=== PATIENT | male | born 1945 | race Caucasian/White ===

== ENCOUNTER 2016-04-25 11:54 | Outpatient (RCR) | payer MEDICARE ==
[2015-01-05 15:04] VITALS: BP 118/83
[~2016-04-25 11:54] MED LIST: ALPRAZOLAM0.5 M2 PO; AMBIEN10 MG PO; IBU800 M1 PO; NEURONTIN800 M1 PO; ULTRAM50 M1 PO
== END 2016-05-15 11:37 | disposition home or self-care (01) ==
LOC: OT 11:54
DX: M62.81 Muscle weakness (generalized) (principal)

== ENCOUNTER 2016-05-06 09:24 | Outpatient (RCR) | payer MEDICARE ==
[2015-01-05 15:04] VITALS: BP 118/83
== END 2016-06-03 13:21 ==
LOC: OPPGERO 09:24
DX: F32.2 Major depressive disorder, single episode, severe without psychotic features (principal); F41.1 Generalized anxiety disorder

== ENCOUNTER 2016-06-04 09:00 | Outpatient (RCR) | payer MEDICARE ==
[2015-01-05 15:04] VITALS: BP 118/83
== END 2016-07-01 10:26 ==
LOC: OPPGERO 09:00
DX: F32.2 Major depressive disorder, single episode, severe without psychotic features (principal); F41.1 Generalized anxiety disorder

== ENCOUNTER 2016-06-18 13:10 | Outpatient (RCR) | payer MEDICARE ==
[2015-01-05 15:04] VITALS: BP 118/83
== END 2016-07-30 10:28 | disposition home or self-care (01) ==
LOC: PT 13:10
DX: M62.81 Muscle weakness (generalized) (principal); S14.106S Unspecified injury at C6 level of cervical spinal cord, sequela; S14.107S Unspecified injury at C7 level of cervical spinal cord, sequela

== ENCOUNTER 2016-07-02 07:44 | Outpatient (RCR) | payer MEDICARE ==
[2015-01-05 15:04] VITALS: BP 118/83
== END 2016-08-01 15:05 ==
LOC: OPPGERO 07:44
DX: F32.2 Major depressive disorder, single episode, severe without psychotic features (principal); F41.1 Generalized anxiety disorder

== ENCOUNTER 2016-08-02 09:00 | Outpatient (RCR) | payer MEDICARE ==
[2015-01-05 15:04] VITALS: BP 118/83
== END 2016-08-29 15:38 ==
LOC: OPPGERO 09:00
DX: F32.2 Major depressive disorder, single episode, severe without psychotic features (principal); F41.1 Generalized anxiety disorder

== ENCOUNTER → 2017-02-13 | Outpatient (CLI) | payer MEDICARE ==
[~2017-02-13] VITALS: Ht 180.3 cm; Wt 96.4 kg
[~2017-02-13] MED LIST changes: +BACLOFEN10 M1 PO; +CYMBALTA20 MG PO; +DITROPAN XL10 M1 PO; +NEURONTIN600 M1 PO; -NEURONTIN800 M1 PO
[2017-02-13 10:02] LABS: BUN/CREATININE RATIO 23.2 (6.0-26.0); CALCIUM 9.7 mg/dL (8.4-10.2); POTASSIUM 4.5 mmol/L (3.6-5.0); TOTAL BILIRUBIN 0.5 mg/dL (0.2-1.3); TOTAL PROTEIN 7.8 g/dL (6.3-8.2)
[2017-02-13 10:06] LABS: EOS # 0.2 (0.04-0.40); EOS % 1.6 % (0.0-4.0); HEMATOCRIT 39.4 % (42.0-52.0); HEMOGLOBIN 12.3 g/dL (13.5-18.0); LYMPH# 1.7 (1.50-4.00); MEAN CELL VOLUME 97 fl (78-100); MEAN CORPUSCULAR HEMOGLOBIN 30 pg (27-31); MEAN CORPUSCULAR HGB CONC 31 g/dL (33-37); MEAN PLATELET VOLUME 9.5 fl (7.4-10.4); MONO # 0.9 (0.20-0.80); NEU # 8.4 (1.40-6.50); PLATELET COUNT 265 K/mm3 (130-400); RED BLOOD COUNT 4.05 M/mm3 (4.20-5.60); RED CELL DISTRIBUTION WIDTH 13.3 % (11.5-14.5); WHITE BLOOD COUNT 11.2 K/mm3 (4.8-10.8)
[2017-02-13 10:23] VITALS: BP 125/86
[2017-02-13 11:31] LABS: ERYTHROCYTE SEDIMENTATION RATE 62 mm/hr (0-20)
[2017-02-13 11:32] LABS: URINE APPEARANCE CLOUDY; URINE BILIRUBIN NEGATIVE (NEGATIVE); URINE BLOOD 50 ery/uL (NEGATIVE); URINE COLOR YELLOW; URINE GLUCOSE NEGATIVE (NEGATIVE); URINE KETONE NEGATIVE (NEGATIVE); URINE LEUKOCYTE ESTERASE 2+ (NEGATIVE); URINE NITRATE POSITIVE (NEGATIVE); URINE PROTEIN(semi-quant) 1+ mg/dL (NEGATIVE); URINE UROBILINOGEN NORMAL (NORMAL); URINE WBC >50 /hpf (0-3)
--- NOTE | 2017-02-15 11:19 | NUR ---
Pt in due to fox catheter bags kept coming undone fron inserted catheter. States happened 2-4 times and it did come undone whie he was standing at nurses desk. Assesed the catheter and observed after reinsterting the bag to indwelling catheter the it gradulay slid off its self while he was laying in the bed. Removed indwelling catheter and reinserted a different typ if indwelling cathere in hopes of fixing the problem pt was having at home. Had pt walk in hallways to insure the catheter would stay conected to the leg bag. After walking in the hallways bag stayed conected to leg bag.
--- NOTE | 2017-02-15 11:31 | NUR ---
While inserting the fox noted and area at the meatus that is yellowish in color. Questioned pt about pain or any drainge he might have noted, he denies any pain or drainge. Explained to pt about the area, he states that he has a doctor appointment on with the urologist and that he would point out the area at that time.
== END ==
LOC: AMSURD 09:21
PROVIDERS: Internal Medicine
DX: N30.00 Acute cystitis without hematuria (principal); E78.2 Mixed hyperlipidemia; Z12.5 Encounter for screening for malignant neoplasm of prostate; F33.1 Major depressive disorder, recurrent, moderate; Z12.11 Encounter for screening for malignant neoplasm of colon; R20.2 Paresthesia of skin
CPT/HCPCS: A4338; A4354; A4358

== ENCOUNTER 2017-06-05 13:30 | Outpatient (RCR) | payer MEDICARE ==
[2017-02-13 10:23] VITALS: BP 125/86
== END 2017-06-05 14:00 | disposition home or self-care (01) ==
LOC: PT 13:30
DX: S14.109D Unspecified injury at unspecified level of cervical spinal cord, subsequent encounter (principal); R29.898 Other symptoms and signs involving the musculoskeletal system; G82.54 Quadriplegia, C5-C7 incomplete; N39.41 Urge incontinence; M79.2 Neuralgia and neuritis, unspecified
CPT/HCPCS: G8978-GP; G8979-GP

== ENCOUNTER 2017-06-09 14:00 | Outpatient (RCR) | payer MEDICARE ==
[2017-02-13 10:23] VITALS: BP 125/86
== END 2017-06-09 14:30 | disposition home or self-care (01) ==
LOC: OT 14:00
DX: S14.101D Unspecified injury at C1 level of cervical spinal cord, subsequent encounter (principal); G82.50 Quadriplegia, unspecified; M48.00 Spinal stenosis, site unspecified

== ENCOUNTER 2018-02-11 13:00 | Outpatient (RCR) | payer MEDICARE ==
[2017-02-13 10:23] VITALS: BP 125/86
== END 2018-02-11 13:30 | disposition home or self-care (01) ==
LOC: OT 13:00
DX: G82.50 Quadriplegia, unspecified (principal)
CPT/HCPCS: G8978-GP; G8979-GP

== ENCOUNTER → 2018-04-05 | Outpatient (CLI) | payer MEDICARE ==
[2017-02-13 10:23] VITALS: BP 125/86
[2018-04-05 17:19] LABS: EOS # 0.3 (0.04-0.40); EOS % 4.4 % (0.0-4.0); HEMATOCRIT 41.4 % (42.0-52.0); LYMPH# 1.6 (1.50-4.00); MEAN CELL VOLUME 97 fl (78-100); MEAN CORPUSCULAR HEMOGLOBIN 30 pg (27-31); MEAN CORPUSCULAR HGB CONC 31 g/dL (33-37); MONO # 0.7 (0.20-0.80); NEU # 3.1 (1.40-6.50); PLATELET COUNT 216 K/mm3 (130-400); RED BLOOD COUNT 4.29 M/mm3 (4.20-5.60); RED CELL DISTRIBUTION WIDTH 13.4 % (11.5-14.5); WHITE BLOOD COUNT 5.6 K/mm3 (4.8-10.8)
[2018-04-05 18:53] LABS: ALBUMIN 4.5 g/dL (3.5-5.0); CALCIUM 9.5 mg/dL (8.4-10.2); POTASSIUM 4.6 mmol/L (3.6-5.0); TOTAL BILIRUBIN 0.4 mg/dL (0.2-1.3); TOTAL PROTEIN 7.6 g/dL (6.3-8.2)
[2018-04-05 19:12] LABS: ERYTHROCYTE SEDIMENTATION RATE 7 mm/hr (0-20)
== END ==
LOC: LAB 16:32
PROVIDERS: Internal Medicine
DX: Z12.5 Encounter for screening for malignant neoplasm of prostate (principal); F33.1 Major depressive disorder, recurrent, moderate; E78.5 Hyperlipidemia, unspecified; M48.00 Spinal stenosis, site unspecified; R20.2 Paresthesia of skin

== ENCOUNTER → 2018-05-03 | Outpatient (CLI) | payer MEDICARE ==
[2017-02-13 10:23] VITALS: BP 125/86
== END ==
LOC: RAD 13:37
DX: M47.814 Spondylosis without myelopathy or radiculopathy, thoracic region (principal); M47.817 Spondylosis without myelopathy or radiculopathy, lumbosacral region; M43.16 Spondylolisthesis, lumbar region; M48.061 Spinal stenosis, lumbar region without neurogenic claudication; M51.26 Other intervertebral disc displacement, lumbar region

== ENCOUNTER → 2018-07-16 | Outpatient (CLI) | payer MEDICARE ==
[2017-02-13 10:23] VITALS: BP 125/86
[~2018-07-16] MED LIST changes: +BACLOFEN5 MG PO; +DULOXETINE30 MG PO; +GABAPENTIN800 MG PO; +KLONOPIN 0.5MG0.5 MG PO; +MOBIC15 M1 PO; +MYRBETRIQ50 MG PO; +VESICARE10 MG PO
== END ==
LOC: CARDLAB 09:21 → CARDREHAB 10:37 → CARDLAB 15:39
DX: R06.02 Shortness of breath (principal); R06.00 Dyspnea, unspecified; Z82.49 Family history of ischemic heart disease and other diseases of the circulatory system
CPT/HCPCS: A9500

== ENCOUNTER → 2018-07-19 | Outpatient (CLI) | payer MEDICARE ==
[~2018-07-19] VITALS: Ht 180.3 cm; Wt 104.1 kg
[2018-07-19 14:15] VITALS: BP 115/67
[2018-07-19 15:09] LABS: ALBUMIN 4.2 g/dL (3.5-5.0); AST-SGOT 30 U/L (17-59); CALCIUM 9.2 mg/dL (8.4-10.2); CARBON DIOXIDE 28 mmol/L (22-30); EOS # 0.3 (0.04-0.40); EOS % 4.4 % (0.0-4.0); GLUCOSE 103 mg/dL (75-110); HEMATOCRIT 42.2 % (42.0-52.0); HEMOGLOBIN 13.3 g/dL (13.5-18.0); LYMPH# 1.3 (1.50-4.00); MEAN CELL VOLUME 96 fl (78-100); MEAN CORPUSCULAR HEMOGLOBIN 30 pg (27-31); MEAN CORPUSCULAR HGB CONC 32 g/dL (33-37); MEAN PLATELET VOLUME 10.3 fl (7.4-10.4); MONO # 0.5 (0.20-0.80); PLATELET COUNT 193 K/mm3 (130-400); POTASSIUM 4.4 mmol/L (3.6-5.0); RED BLOOD COUNT 4.41 M/mm3 (4.20-5.60); RED CELL DISTRIBUTION WIDTH 13.4 % (11.5-14.5); SODIUM 140 mmol/L (137-145); TOTAL BILIRUBIN 0.4 mg/dL (0.2-1.3); TOTAL PROTEIN 7.4 g/dL (6.3-8.2); WHITE BLOOD COUNT 6.1 K/mm3 (4.8-10.8)
[2018-07-19 15:20] LABS: PARTIAL THROMBOPLASTIN TIME 24.5 SECONDS (21.0-32.0); PROTHROMBIN TIME 9.9 SECONDS (9.0-12.0)
[2018-07-19 15:32] LABS: ALT/SGPT < 3 U/L (21-72)
== END ==
LOC: AMSURD 13:07
PROVIDERS: Internal Medicine
DX: Z01.812 Encounter for preprocedural laboratory examination (principal); M48.062 Spinal stenosis, lumbar region with neurogenic claudication; M48.02 Spinal stenosis, cervical region; Z79.01 Long term (current) use of anticoagulants

== ENCOUNTER 2018-09-17 13:00 | Outpatient (RCR) | payer MEDICARE ==
[2018-07-19 14:15] VITALS: BP 115/67
== END 2018-09-17 13:30 ==
LOC: PT 13:00
DX: M48.02 Spinal stenosis, cervical region (principal); G99.2 Myelopathy in diseases classified elsewhere

== ENCOUNTER 2019-02-05 18:14 | Emergency (ER) | payer MEDICARE ==
[~2019-02-05] VITALS: Ht 177.8 cm; Wt 103.2 kg
[2019-02-05] MEDS ORDERED: POTASSIUM CITR10 MEQ PO (18:23)
[2019-02-05 19:20] VITALS: BP 138/89
== END 2019-02-05 19:35 | disposition home or self-care (01) ==
LOC: ED 18:14
DX: N31.9 Neuromuscular dysfunction of bladder, unspecified (principal); R33.8 Other retention of urine; N52.9 Male erectile dysfunction, unspecified; Z98.890 Other specified postprocedural states
CPT/HCPCS: A4340

== ENCOUNTER 2019-02-17 17:18 | Emergency (ER) | payer MEDICARE ==
[~2019-02-17] VITALS: Wt 103.6 kg
[~2019-02-17 17:18] MED LIST changes: +POTASSIUM CITR10 MEQ PO
[2019-02-17 18:00] LABS: EOS # 0.3 (0.04-0.40); EOS % 4.5 % (0.0-4.0); HEMATOCRIT 37.7 % (42.0-52.0); LYMPH# 1.9 (1.50-4.00); MEAN CELL VOLUME 94 fl (78-100); MEAN CORPUSCULAR HEMOGLOBIN 30 pg (27-31); MEAN CORPUSCULAR HGB CONC 32 g/dL (33-37); MEAN PLATELET VOLUME 9.5 fl (7.4-10.4); MONO # 0.6 (0.20-0.80); NEU # 4.4 (1.40-6.50); PLATELET COUNT 200 K/mm3 (130-400); RED BLOOD COUNT 4.01 M/mm3 (4.20-5.60); RED CELL DISTRIBUTION WIDTH 14.1 % (11.5-14.5); WHITE BLOOD COUNT 7.2 K/mm3 (4.8-10.8)
[2019-02-17 18:06] LABS: ALBUMIN 3.9 g/dL (3.4-4.8)
[2019-02-17 18:07] LABS: POTASSIUM 4.4 mmol/L (3.5-5.1); PROTHROMBIN TIME 10.3 SECONDS (9.0-12.0); SODIUM 138 mmol/L (136-145)
[2019-02-17 18:08] LABS: CALCIUM 9.2 mg/dL (8.3-10.5)
[2019-02-17 18:09] LABS: GLUCOSE 106 mg/dL (75-110); TOTAL PROTEIN 7.1 g/dL (6.2-8.1)
[2019-02-17 18:10] LABS: CARBON DIOXIDE 24 mmol/L (23-31)
[2019-02-17 18:11] LABS: TOTAL BILIRUBIN 0.3 mg/dL (0.2-1.2)
[2019-02-17 18:12] LABS: ALCOHOL IN-HOUSE < 10 mg/dL (<10)
[2019-02-17 18:14] LABS: AST-SGOT 22 U/L (5-34)
[2019-02-17 18:16] LABS: ALT/SGPT 13 U/L (0-55)
[2019-02-17 18:22] LABS: TROPONIN-I < 0.03 ng/mL (<0.030)
[2019-02-17 19:55] VITALS: BP 168/92
== END 2019-02-17 19:57 | disposition home or self-care (01) ==
LOC: ED 17:18
PROVIDERS: Physician Assistant
DX: S06.0X9A Concussion with loss of consciousness of unspecified duration, initial encounter (principal); S00.83XA Contusion of other part of head, initial encounter; Z98.890 Other specified postprocedural states
CPT/HCPCS: 15973; L0172

== ENCOUNTER 2019-03-01 12:14 | Emergency (ER) | payer MEDICARE ==
[2019-03-01 13:40] VITALS: BP 94/57
== END 2019-03-01 13:30 | disposition home or self-care (01) ==
LOC: ED 12:14
DX: T83.198A Other mechanical complication of other urinary devices and implants, initial encounter (principal); R33.9 Retention of urine, unspecified; G62.9 Polyneuropathy, unspecified; F32.9 Major depressive disorder, single episode, unspecified; F41.9 Anxiety disorder, unspecified; Z87.442 Personal history of urinary calculi; Z98.890 Other specified postprocedural states
CPT/HCPCS: A4340

== ENCOUNTER 2019-03-22 10:03 | Outpatient (RCR) | payer MEDICARE ==
[2019-03-11 17:40] VITALS: BP 108/68
--- NOTE | 2019-03-11 17:41 | NUR ---
PT'S SUPRPUBIC CATHETER CHANGED OUT PER STANDING ORDER, USED ALL OF PT'S HOME SUPPLIES, TOLERATED PROCEDURE WELL, OBTAINED YELLOW CLOUDY URINE RETURN INTO LEG BAG
[~2019-03-22] VITALS: Ht 172.7 cm; Wt 103.6 kg
[2019-03-22 10:47] VITALS: BP 178/69
[2019-05-02] MEDS ORDERED: BACTRIM DS TAB1 EACH PO (23:58)
== END 2019-06-09 | disposition still patient (30) ==
LOC: AMSURD
DX: N31.2 Flaccid neuropathic bladder, not elsewhere classified (principal)
CPT/HCPCS: A4340

== ENCOUNTER 2019-05-02 20:52 | Emergency (ER) | payer MEDICARE ==
[~2019-05-02] VITALS: Ht 180.3 cm; Wt 100.0 kg
[2019-05-02 21:39] LABS: EOS # 0.2 (0.04-0.40); HEMOGLOBIN 12.6 g/dL (13.5-18.0); LYMPH# 1.9 (1.50-4.00); MEAN CELL VOLUME 97 fl (78-100); MEAN CORPUSCULAR HEMOGLOBIN 30 pg (27-31); MEAN CORPUSCULAR HGB CONC 31 g/dL (33-37); MEAN PLATELET VOLUME 9.7 fl (7.4-10.4); MONO # 0.8 (0.20-0.80); PLATELET COUNT 216 K/mm3 (130-400); RED BLOOD COUNT 4.22 M/mm3 (4.20-5.60); RED CELL DISTRIBUTION WIDTH 13.9 % (11.5-14.5); WHITE BLOOD COUNT 7.9 K/mm3 (4.8-10.8)
[2019-05-02 21:47] LABS: ALBUMIN 4.1 g/dL (3.4-4.8); POTASSIUM 4.5 mmol/L (3.5-5.1)
[2019-05-02 21:48] LABS: CALCIUM 9.1 mg/dL (8.3-10.5)
[2019-05-02 21:49] LABS: TOTAL PROTEIN 7.2 g/dL (6.2-8.1)
[2019-05-02 21:51] LABS: TOTAL BILIRUBIN 0.3 mg/dL (0.2-1.2)
[2019-05-02 23:29] LABS: URINE APPEARANCE CLOUDY; URINE COLOR YELLOW
[2019-05-02 23:30] LABS: URINE BILIRUBIN NEGATIVE (NEGATIVE); URINE BLOOD 250 ery/uL (NEGATIVE); URINE GLUCOSE NEGATIVE (NEGATIVE); URINE KETONE NEGATIVE (NEGATIVE); URINE LEUKOCYTE ESTERASE 2+ (NEGATIVE); URINE NITRATE POSITIVE (NEGATIVE); URINE PROTEIN(semi-quant) 2+ mg/dL (NEGATIVE); URINE UROBILINOGEN NORMAL (NORMAL); URINE WBC >50 /hpf (0-3)
[2019-05-02] MEDS ORDERED: BACTRIM DS TAB1 EACH PO (23:58)
[2019-05-03 00:05] VITALS: BP 135/67
== END 2019-05-03 00:05 | disposition home or self-care (01) ==
LOC: ED 20:52
PROVIDERS: Nurse Practitioner Primary Care
DX: R41.0 Disorientation, unspecified (principal); N30.01 Acute cystitis with hematuria; I10 Essential (primary) hypertension; F17.210 Nicotine dependence, cigarettes, uncomplicated

== ENCOUNTER → 2019-05-09 | Outpatient (CLI) | payer MEDICARE ==
[2019-05-03 00:05] VITALS: BP 135/67
[~2019-05-09] MED LIST changes: +BACTRIM DS TAB1 EACH PO
== END ==
LOC: LAB 14:30
DX: Z12.5 Encounter for screening for malignant neoplasm of prostate (principal); E78.5 Hyperlipidemia, unspecified; R20.2 Paresthesia of skin

== ENCOUNTER → 2019-11-11 | Outpatient (CLI) | payer MEDICARE | LOC: LAB 15:37 | DX: R20.2 Paresthesia of skin (principal) ==

== ENCOUNTER → 2019-12-09 | Outpatient (CLI) | payer MEDICARE | LOC: LAB 12:16 | DX: R20.2 Paresthesia of skin (principal) ==

== ENCOUNTER 2019-12-22 12:52 | Outpatient (RCR) | payer MEDICARE | END 2020-01-02 16:17 | disposition still patient (30) | LOC: OPPGERO 12:52 | DX: F33.1 Major depressive disorder, recurrent, moderate (principal); M48.02 Spinal stenosis, cervical region; F41.1 Generalized anxiety disorder; Z99.3 Dependence on wheelchair; G56.00 Carpal tunnel syndrome, unspecified upper limb; E78.5 Hyperlipidemia, unspecified; N40.0 Benign prostatic hyperplasia without lower urinary tract symptoms; E66.9 Obesity, unspecified; Z98.1 Arthrodesis status; Z87.891 Personal history of nicotine dependence; Z79.899 Other long term (current) drug therapy; Z96.0 Presence of urogenital implants; Z98.890 Other specified postprocedural states ==

== ENCOUNTER → 2020-10-05 | Outpatient (CLI) | payer MEDICARE ==
[2020-03-23 14:08] VITALS: BP 124/83
[~2020-10-05] MED LIST changes: +CEFDINIR300 MG PO; +HCTZ 25MG25 MG PO; +LEVOFLOXACIN750 MG PO; +TRAMADOL HCL E100 MG PO
[2020-10-05 16:08] LABS: BASO # 0.01 (0.02-0.10); EOS % 4.7 % (0.0-4.0); HEMATOCRIT 41.3 % (42.0-52.0); HEMOGLOBIN 13.3 g/dL (13.5-18.0); MEAN CELL VOLUME 94 fl (78-100); MEAN CORPUSCULAR HEMOGLOBIN 30 pg (27-31); MEAN CORPUSCULAR HGB CONC 32 g/dL (33-37); MEAN PLATELET VOLUME 9.2 fl (7.4-10.4); MONO # 0.68 (0.20-0.80); NEU # 3.37 (1.40-6.50); PLATELET COUNT 202 K/mm3 (130-400); RED BLOOD COUNT 4.41 M/mm3 (4.20-5.60); WHITE BLOOD COUNT 6.4 K/mm3 (4.8-10.8)
[2020-10-05 16:15] LABS: POTASSIUM 4.3 mmol/L (3.5-5.1)
[2020-10-05 16:16] LABS: ALBUMIN 4.1 g/dL (3.4-4.8)
[2020-10-05 16:17] LABS: CALCIUM 9.1 mg/dL (8.3-10.5)
[2020-10-05 16:18] LABS: TOTAL PROTEIN 7.4 g/dL (6.2-8.1)
[2020-10-05 16:20] LABS: TOTAL BILIRUBIN 0.3 mg/dL (0.2-1.2)
[2020-10-05 17:08] LABS: ERYTHROCYTE SEDIMENTATION RATE 13 mm/hr (0-20)
== END ==
LOC: LAB 15:53
PROVIDERS: Internal Medicine
DX: Z12.5 Encounter for screening for malignant neoplasm of prostate (principal); E78.2 Mixed hyperlipidemia; K90.9 Intestinal malabsorption, unspecified; M79.2 Neuralgia and neuritis, unspecified

== ENCOUNTER → 2020-10-29 | Day surgery (SDC) | payer MEDICARE | END | disposition home or self-care (01) | LOC: MSO 08:14 | DX: Z12.11 Encounter for screening for malignant neoplasm of colon (principal); K57.30 Diverticulosis of large intestine without perforation or abscess without bleeding; R13.10 Dysphagia, unspecified; F32.9 Major depressive disorder, single episode, unspecified; F41.9 Anxiety disorder, unspecified; G82.50 Quadriplegia, unspecified; Z79.899 Other long term (current) drug therapy; N31.9 Neuromuscular dysfunction of bladder, unspecified | CPT/HCPCS: 00813; J2704; J7120 ==

== ENCOUNTER → 2021-04-23 | Outpatient (CLI) | payer MEDICARE ==
[2021-04-23 13:49] LABS: URINE APPEARANCE HAZY; URINE BILIRUBIN NEGATIVE (NEGATIVE); URINE COLOR YELLOW; URINE GLUCOSE NEGATIVE (NEGATIVE); URINE KETONE NEGATIVE (NEGATIVE); URINE NITRATE NEGATIVE (NEGATIVE); URINE PROTEIN(semi-quant) 2+ (NEGATIVE); URINE UROBILINOGEN NORMAL (NORMAL)
[2021-04-23 13:50] LABS: URINE BLOOD 50 ery/uL (NEGATIVE); URINE LEUKOCYTE ESTERASE 2+ (NEGATIVE); URINE MUCUS PRESENT (NOT PRESENT)
== END ==
LOC: LAB 13:15
PROVIDERS: Urology
DX: N39.0 Urinary tract infection, site not specified (principal); N31.2 Flaccid neuropathic bladder, not elsewhere classified

== ENCOUNTER → 2021-07-10 | Outpatient (CLI) | payer MEDICARE ==
[2021-07-10 14:08] LABS: BASO # 0.01 K/mm3 (0.02-0.10); EOS # 0.27 K/mm3 (0.04-0.40); EOS % 3.2 % (0.0-4.0); HEMATOCRIT 42.3 % (42.0-52.0); HEMOGLOBIN 13.4 g/dL (13.5-18.0); LYMPH# 1.67 K/mm3 (1.50-4.00); MEAN CELL VOLUME 95 fl (78-100); MEAN CORPUSCULAR HEMOGLOBIN 30 pg (27-31); MEAN CORPUSCULAR HGB CONC 32 g/dL (33-37); MEAN PLATELET VOLUME 9.1 fl (7.4-10.4); MONO # 0.62 K/mm3 (0.20-0.80); PLATELET COUNT 204 K/mm3 (130-400); RED BLOOD COUNT 4.44 M/mm3 (4.20-5.60); RED CELL DISTRIBUTION WIDTH 13.2 % (11.5-14.5); WHITE BLOOD COUNT 8.5 K/mm3 (4.8-10.8)
[2021-07-10 14:21] LABS: POTASSIUM 4.3 mmol/L (3.5-5.1)
[2021-07-10 14:22] LABS: ALBUMIN 4.1 g/dL (3.4-4.8)
[2021-07-10 14:23] LABS: CALCIUM 9.4 mg/dL (8.3-10.5)
[2021-07-10 14:24] LABS: TOTAL PROTEIN 7.5 g/dL (6.2-8.1)
[2021-07-10 14:26] LABS: TOTAL BILIRUBIN 0.3 mg/dL (0.2-1.2)
== END ==
LOC: LAB 13:47
PROVIDERS: Internal Medicine
DX: E78.2 Mixed hyperlipidemia (principal)

== ENCOUNTER → 2021-10-25 | Outpatient (CLI) | payer MEDICARE ==
[2021-10-25 17:21] LABS: URINE APPEARANCE CLOUDY; URINE BILIRUBIN NEGATIVE (NEGATIVE); URINE BLOOD 250 ery/uL (NEGATIVE); URINE COLOR ORANGE; URINE GLUCOSE NEGATIVE (NEGATIVE); URINE KETONE NEGATIVE (NEGATIVE); URINE LEUKOCYTE ESTERASE 2+ (NEGATIVE); URINE NITRATE POSITIVE (NEGATIVE); URINE PROTEIN(semi-quant) 3+ (NEGATIVE); URINE UROBILINOGEN NORMAL (NORMAL)
[2021-10-25 17:22] LABS: URINE MUCUS PRESENT (NOT PRESENT); URINE WBC >50 /hpf (0-3)
== END ==
LOC: LAB 15:20
PROVIDERS: Internal Medicine
DX: N39.0 Urinary tract infection, site not specified (principal)

== ENCOUNTER → 2021-11-05 | Outpatient (CLI) | payer MEDICARE ==
[2021-11-05 12:18] LABS: BASO # 0.04 K/mm3 (0.02-0.10); EOS # 0.38 K/mm3 (0.04-0.40); EOS % 3.7 % (0.0-4.0); HEMATOCRIT 35.3 % (42.0-52.0); HEMOGLOBIN 10.9 g/dL (13.5-18.0); LYMPH# 1.47 K/mm3 (1.50-4.00); MEAN CELL VOLUME 97 fl (78-100); MEAN CORPUSCULAR HEMOGLOBIN 30 pg (27-31); MEAN CORPUSCULAR HGB CONC 31 g/dL (33-37); MEAN PLATELET VOLUME 9.3 fl (7.4-10.4); MONO # 0.66 K/mm3 (0.20-0.80); NEU # 7.63 K/mm3 (1.40-6.50); PLATELET COUNT 322 K/mm3 (130-400); RED BLOOD COUNT 3.63 M/mm3 (4.20-5.60); RED CELL DISTRIBUTION WIDTH 14.3 % (11.5-14.5); WHITE BLOOD COUNT 10.3 K/mm3 (4.8-10.8)
[2021-11-05 12:40] LABS: ALBUMIN 3.6 g/dL (3.4-4.8); POTASSIUM 4.7 mmol/L (3.5-5.1)
[2021-11-05 12:41] LABS: CALCIUM 8.8 mg/dL (8.3-10.5)
[2021-11-05 12:42] LABS: TOTAL PROTEIN 6.3 g/dL (6.2-8.1)
[2021-11-05 12:44] LABS: TOTAL BILIRUBIN 0.3 mg/dL (0.2-1.2)
== END ==
LOC: LAB 11:44
PROVIDERS: Internal Medicine
DX: Z12.5 Encounter for screening for malignant neoplasm of prostate (principal); Z12.11 Encounter for screening for malignant neoplasm of colon; E78.2 Mixed hyperlipidemia; N39.0 Urinary tract infection, site not specified; K90.9 Intestinal malabsorption, unspecified

== ENCOUNTER → 2021-11-08 | Outpatient (CLI) | payer MEDICARE ==
[~2021-11-08] VITALS: Ht 177.8 cm; Wt 101.4 kg
[2021-11-08 18:21] VITALS: BP 135/80
== END ==
LOC: AMSURD 16:39
DX: N39.0 Urinary tract infection, site not specified (principal)

== ENCOUNTER → 2022-03-10 | Outpatient (CLI) | payer MEDICARE ==
[2022-03-10 15:16] LABS: BASO # 0.01 K/mm3 (0.02-0.10); EOS # 0.26 K/mm3 (0.04-0.40); EOS % 4.4 % (0.0-4.0); HEMATOCRIT 40.1 % (42.0-52.0); HEMOGLOBIN 12.7 g/dL (13.5-18.0); LYMPH# 1.93 K/mm3 (1.50-4.00); MEAN CELL VOLUME 96 fl (78-100); MEAN CORPUSCULAR HEMOGLOBIN 30 pg (27-31); MEAN CORPUSCULAR HGB CONC 32 g/dL (33-37); MEAN PLATELET VOLUME 9.3 fl (7.4-10.4); MONO # 0.54 K/mm3 (0.20-0.80); NEU # 3.18 K/mm3 (1.40-6.50); PLATELET COUNT 210 K/mm3 (130-400); WHITE BLOOD COUNT 5.9 K/mm3 (4.8-10.8)
[2022-03-10 15:19] LABS: POTASSIUM 5.2 mmol/L (3.5-5.1)
[2022-03-10 15:20] LABS: CALCIUM 9.5 mg/dL (8.3-10.5)
[2022-03-10 15:21] LABS: TOTAL PROTEIN 7.4 g/dL (6.2-8.1)
[2022-03-10 15:23] LABS: TOTAL BILIRUBIN 0.2 mg/dL (0.2-1.2)
== END ==
LOC: LAB 14:46
PROVIDERS: Internal Medicine
DX: M79.2 Neuralgia and neuritis, unspecified (principal)

== ENCOUNTER → 2023-01-12 | Outpatient (CLI) | payer MEDICARE ==
[~2023-01-12] MED LIST changes: +AMLODIPINE BESYL5 MG; +BACLOFEN20 MG; +MELOXICAM15 MG; +TRAMADOL 50 MG TAB
== END ==
LOC: RAD 15:10
DX: N20.1 Calculus of ureter (principal); K59.00 Constipation, unspecified

== ENCOUNTER → 2023-03-02 | Outpatient (CLI) | payer MEDICARE | LOC: CARDREHAB 02-17 14:17 | DX: G47.19 Other hypersomnia (principal) | CPT/HCPCS: G0399 ==

== ENCOUNTER → 2023-03-03 | Outpatient (CLI) | payer MEDICARE ==
[2023-03-03 12:17] LABS: BASO # 0.01 K/mm3 (0.02-0.10); EOS # 0.17 K/mm3 (0.04-0.40); EOS % 2.8 % (0.0-4.0); HEMATOCRIT 43.3 % (42.0-52.0); HEMOGLOBIN 13.2 g/dL (13.5-18.0); LYMPH# 1.92 K/mm3 (1.50-4.00); MEAN CELL VOLUME 98 fl (78-100); MEAN CORPUSCULAR HEMOGLOBIN 30 pg (27-31); MEAN CORPUSCULAR HGB CONC 31 g/dL (33-37); MEAN PLATELET VOLUME 9.3 fl (7.4-10.4); MONO # 0.47 K/mm3 (0.20-0.80); NEU # 3.55 K/mm3 (1.40-6.50); PLATELET COUNT 214 K/mm3 (130-400); RED BLOOD COUNT 4.41 M/mm3 (4.20-5.60); WHITE BLOOD COUNT 6.1 K/mm3 (4.8-10.8)
== END ==
LOC: LAB 12:00
PROVIDERS: Internal Medicine
DX: I10 Essential (primary) hypertension (principal); K90.9 Intestinal malabsorption, unspecified; E78.2 Mixed hyperlipidemia; M79.2 Neuralgia and neuritis, unspecified

== ENCOUNTER 2023-11-20 20:18 | Emergency (ER) | payer MEDICARE ==
[~2023-11-20] VITALS: Ht 177.8 cm; Wt 104.4 kg
[2023-11-20 20:46] LABS: BASO # 0.02 K/mm3 (0.02-0.10); EOS # 0.25 K/mm3 (0.04-0.40); HEMATOCRIT 38.7 % (42.0-52.0); HEMOGLOBIN 12.3 g/dL (13.5-18.0); LYMPH# 1.87 K/mm3 (1.50-4.00); MEAN CELL VOLUME 97 fl (78-100); MEAN CORPUSCULAR HEMOGLOBIN 31 pg (27-31); MEAN CORPUSCULAR HGB CONC 32 g/dL (33-37); MEAN PLATELET VOLUME 9.1 fl (7.4-10.4); MONO # 0.73 K/mm3 (0.20-0.80); PLATELET COUNT 184 K/mm3 (130-400); RED BLOOD COUNT 3.99 M/mm3 (4.20-5.60); WHITE BLOOD COUNT 8.4 K/mm3 (4.8-10.8)
[2023-11-20 20:53] LABS: ALBUMIN 3.9 g/dL (3.4-4.8)
[2023-11-20 20:55] LABS: CALCIUM 9.4 mg/dL (8.3-10.5)
[2023-11-20 20:56] LABS: TOTAL PROTEIN 6.9 g/dL (6.2-8.1)
[2023-11-20 20:58] LABS: TOTAL BILIRUBIN 0.3 mg/dL (0.2-1.2)
[2023-11-20 21:05] LABS: URINE APPEARANCE CLEAR (CLEAR); URINE COLOR YELLOW (YELLOW)
[2023-11-20 21:09] LABS: URINE BILIRUBIN 1+ (NEGATIVE); URINE BLOOD 3+ (NEGATIVE); URINE GLUCOSE NEGATIVE (NEGATIVE); URINE KETONE TRACE (NEGATIVE); URINE LEUKOCYTE ESTERASE 1+ (NEGATIVE); URINE NITRATE NEGATIVE (NEGATIVE); URINE PROTEIN(semi-quant) 3+ (NEGATIVE)
[2023-11-20] MEDS ORDERED: XALATAN 2.5 ML2.5 ML OU (21:10)
[2023-11-20 21:14] LABS: URINE WBC 16-30 /hpf (0-3)
[2023-11-20] MEDS ORDERED: LEVOFLOXACIN500 M1 PO (21:25)
[2023-11-20 22:05] VITALS: BP 143/80
== END 2023-11-20 22:05 | disposition home or self-care (01) ==
LOC: ED 20:18
PROVIDERS: Family Medicine
DX: N39.0 Urinary tract infection, site not specified (principal); E86.0 Dehydration; G82.20 Paraplegia, unspecified; Z93.8 Other artificial opening status
CPT/HCPCS: J7120

== ENCOUNTER → 2024-01-12 | Outpatient (CLI) | payer MEDICARE ==
[~2024-01-12] MED LIST changes: +LEVOFLOXACIN500 M1 PO; +XALATAN 2.5 ML2.5 ML OU
[2024-01-12 14:20] LABS: BASO # 0.01 K/mm3 (0.02-0.10); EOS # 0.22 K/mm3 (0.04-0.40); EOS % 4.1 % (0.0-4.0); HEMATOCRIT 40.6 % (42.0-52.0); HEMOGLOBIN 12.9 g/dL (13.5-18.0); LYMPH# 1.34 K/mm3 (1.50-4.00); MEAN CELL VOLUME 97 fl (78-100); MEAN CORPUSCULAR HEMOGLOBIN 31 pg (27-31); MEAN CORPUSCULAR HGB CONC 32 g/dL (33-37); MEAN PLATELET VOLUME 9.1 fl (7.4-10.4); MONO # 0.42 K/mm3 (0.20-0.80); NEU # 3.44 K/mm3 (1.40-6.50); PLATELET COUNT 182 K/mm3 (130-400); RED BLOOD COUNT 4.18 M/mm3 (4.20-5.60); RED CELL DISTRIBUTION WIDTH 12.9 % (11.5-14.5); WHITE BLOOD COUNT 5.4 K/mm3 (4.8-10.8)
[2024-01-12 14:27] LABS: ALBUMIN 4.1 g/dL (3.4-4.8)
[2024-01-12 14:28] LABS: CALCIUM 9.4 mg/dL (8.3-10.5)
[2024-01-12 14:29] LABS: TOTAL PROTEIN 7.1 g/dL (6.2-8.1)
[2024-01-12 14:31] LABS: TOTAL BILIRUBIN 0.3 mg/dL (0.2-1.2)
[2024-01-12 14:36] LABS: MAGNESIUM 2.07 mg/dL (1.60-2.60)
[2024-01-12 22:59] LABS: TESTOSTERONE 497 ng/dL (221-716)
== END ==
LOC: LAB 13:30
PROVIDERS: Internal Medicine
DX: Z12.11 Encounter for screening for malignant neoplasm of colon (principal); I10 Essential (primary) hypertension; K90.9 Intestinal malabsorption, unspecified; E78.2 Mixed hyperlipidemia; Z12.5 Encounter for screening for malignant neoplasm of prostate; F52.21 Male erectile disorder; R73.9 Hyperglycemia, unspecified

== ENCOUNTER → 2024-01-20 | Outpatient (CLI) | payer MEDICARE | LOC: LAB 13:19 | DX: Z12.5 Encounter for screening for malignant neoplasm of prostate (principal); Z12.11 Encounter for screening for malignant neoplasm of colon; I10 Essential (primary) hypertension; K90.9 Intestinal malabsorption, unspecified; E78.2 Mixed hyperlipidemia; F52.21 Male erectile disorder; R73.9 Hyperglycemia, unspecified ==

== ENCOUNTER → 2024-02-22 | Outpatient (CLI) | payer MEDICARE ==
[2024-02-22 17:48] LABS: PH-URINE 5.5 (5.0 - 8.0); URINE APPEARANCE SLIGHTLY CLOUDY (CLEAR); URINE BILIRUBIN NEGATIVE (NEGATIVE); URINE BLOOD 1+ (NEGATIVE); URINE COLOR YELLOW (YELLOW); URINE GLUCOSE NEGATIVE (NEGATIVE); URINE KETONE NEGATIVE (NEGATIVE); URINE LEUKOCYTE ESTERASE 3+ (NEGATIVE); URINE NITRATE POSITIVE (NEGATIVE); URINE PROTEIN(semi-quant) NEGATIVE (NEGATIVE)
[2024-02-22 17:51] LABS: URINE WBC >50 /hpf (0-3)
== END ==
LOC: AMSURD 16:42
PROVIDERS: Internal Medicine
DX: N39.0 Urinary tract infection, site not specified (principal)

== ENCOUNTER → 2024-04-20 | Outpatient (CLI) | payer MEDICARE | LOC: RAD 10:13 | DX: M47.816 Spondylosis without myelopathy or radiculopathy, lumbar region (principal); M43.16 Spondylolisthesis, lumbar region; M16.11 Unilateral primary osteoarthritis, right hip; Z98.890 Other specified postprocedural states ==

== ENCOUNTER → 2024-05-31 | Outpatient (CLI) | payer MEDICARE | LOC: RAD 08:50 | DX: M47.816 Spondylosis without myelopathy or radiculopathy, lumbar region (principal); M48.061 Spinal stenosis, lumbar region without neurogenic claudication ==

== ENCOUNTER → 2024-08-04 | Outpatient (CLI) | payer MEDICARE ==
[2024-08-04 17:15] LABS: BASO # 0.01 K/mm3 (0.02-0.10); EOS # 0.15 K/mm3 (0.04-0.40); EOS % 1.5 % (0.0-4.0); HEMATOCRIT 43.8 % (42.0-52.0); HEMOGLOBIN 13.9 g/dL (13.5-18.0); LYMPH# 1.46 K/mm3 (1.50-4.00); MEAN CELL VOLUME 97 fl (78-100); MEAN CORPUSCULAR HEMOGLOBIN 31 pg (27-31); MEAN CORPUSCULAR HGB CONC 32 g/dL (33-37); MEAN PLATELET VOLUME 9.3 fl (7.4-10.4); MONO # 0.79 K/mm3 (0.20-0.80); NEU # 7.59 K/mm3 (1.40-6.50); PLATELET COUNT 193 K/mm3 (130-400); RED BLOOD COUNT 4.54 M/mm3 (4.20-5.60); RED CELL DISTRIBUTION WIDTH 13.4 % (11.5-14.5)
[2024-08-04 17:26] LABS: ALBUMIN 4.5 g/dL (3.4-4.8)
[2024-08-04 17:27] LABS: CALCIUM 10.4 mg/dL (8.3-10.5)
[2024-08-04 17:28] LABS: TOTAL PROTEIN 8.3 g/dL (6.2-8.1)
[2024-08-04 17:30] LABS: TOTAL BILIRUBIN 0.5 mg/dL (0.2-1.2)
[2024-08-04 17:35] LABS: MAGNESIUM 2.13 mg/dL (1.60-2.60)
[2024-08-04 22:47] LABS: TESTOSTERONE 323 ng/dL (221-716)
== END ==
LOC: LAB 16:56
PROVIDERS: Internal Medicine
DX: I10 Essential (primary) hypertension (principal); E78.2 Mixed hyperlipidemia; K90.9 Intestinal malabsorption, unspecified; F52.21 Male erectile disorder; R73.9 Hyperglycemia, unspecified

== ENCOUNTER 2024-08-17 13:04 | Emergency (ER) | payer MEDICARE ==
[~2024-08-17] VITALS: Ht 177.8 cm; Wt 103.5 kg
[2024-08-17] MEDS ORDERED: DULOXETINE20 MG PO (14:04)
[2024-08-17] MEDS ORDERED: MYSOLINE50 M1 PO (14:08)
[2024-08-17] MEDS ORDERED: PROZAC10 M2 (14:08)
[2024-08-17] MEDS ORDERED: MYSOLINE50 M1 (14:09)
[2024-08-17 15:02] LABS: BASO # 0.02 K/mm3 (0.02-0.10); EOS # 0.16 K/mm3 (0.04-0.40); HEMOGLOBIN 12.5 g/dL (13.5-18.0); LYMPH# 1.75 K/mm3 (1.50-4.00); MEAN CELL VOLUME 98 fl (78-100); MEAN CORPUSCULAR HEMOGLOBIN 31 pg (27-31); MEAN CORPUSCULAR HGB CONC 31 g/dL (33-37); MEAN PLATELET VOLUME 9.6 fl (7.4-10.4); MONO # 0.47 K/mm3 (0.20-0.80); NEU # 5.42 K/mm3 (1.40-6.50); PLATELET COUNT 177 K/mm3 (130-400); RED BLOOD COUNT 4.09 M/mm3 (4.20-5.60); RED CELL DISTRIBUTION WIDTH 13.1 % (11.5-14.5); WHITE BLOOD COUNT 7.8 K/mm3 (4.8-10.8)
[2024-08-17 15:12] LABS: ALBUMIN 3.8 g/dL (3.4-4.8)
[2024-08-17 15:15] LABS: TOTAL PROTEIN 7.1 g/dL (6.2-8.1)
[2024-08-17 15:17] LABS: TOTAL BILIRUBIN 0.3 mg/dL (0.2-1.2)
[2024-08-17 15:34] LABS: PH-URINE 8.5 (5.0 - 8.0); URINE APPEARANCE CLEAR (CLEAR); URINE BILIRUBIN NEGATIVE (NEGATIVE); URINE BLOOD 1+ (NEGATIVE); URINE COLOR YELLOW (YELLOW); URINE GLUCOSE NEGATIVE (NEGATIVE); URINE KETONE NEGATIVE (NEGATIVE); URINE LEUKOCYTE ESTERASE 2+ (NEGATIVE); URINE MUCUS PRESENT (NOT PRESENT); URINE NITRATE POSITIVE (NEGATIVE); URINE PROTEIN(semi-quant) 1+ (NEGATIVE); URINE WBC 31-50 /hpf (0-3)
[2024-08-17] MEDS ORDERED: LEVOFLOXACIN500 M1 PO ×2 (15:58→16:01)
[2024-08-17 16:13] VITALS: BP 164/119
== END 2024-08-17 16:13 | disposition home or self-care (01) ==
LOC: ED 13:04
PROVIDERS: Physician Assistant
DX: N39.0 Urinary tract infection, site not specified (principal)